=== PATIENT | male | born 1985 | race Caucasian/White ===

== ENCOUNTER 2018-10-18 23:10 | Emergency (ER) | payer SELFPAY ==
[~2018-10-18] VITALS: Ht 175.3 cm; Wt 84.1 kg
[2018-10-18 23:14] VITALS: BP 137/82; PULSE 87; TEMP 97.1
== END 2018-10-19 00:50 | disposition home or self-care (01) ==
LOC: COL.ER 23:10
DX: S49.91XA Unspecified injury of right shoulder and upper arm, initial encounter (principal); R20.0 Anesthesia of skin; I10 Essential (primary) hypertension; M47.816 Spondylosis without myelopathy or radiculopathy, lumbar region; M54.9 Dorsalgia, unspecified; G89.29 Other chronic pain; F17.210 Nicotine dependence, cigarettes, uncomplicated; Z87.828 Personal history of other (healed) physical injury and trauma; X50.0XXA Overexertion from strenuous movement or load, initial encounter

== ENCOUNTER 2018-10-23 19:57 | Emergency (ER) | payer SELFPAY ==
[~2018-10-23] VITALS: Ht 172.7 cm; Wt 84.1 kg
[2018-10-23 19:57] VITALS: TEMP 96.8
[2018-10-23] MEDS ORDERED: FLEXERIL 1010 MG/TAB PO (20:35)
[2018-10-23 21:37] VITALS: BP 131/89; PULSE 79
== END 2018-10-23 21:37 | disposition home or self-care (01) ==
LOC: COL.ER 19:57
DX: S09.90XA Unspecified injury of head, initial encounter (principal); S60.511A Abrasion of right hand, initial encounter; S20.311A Abrasion of right front wall of thorax, initial encounter; R07.89 Other chest pain; G89.29 Other chronic pain; M54.9 Dorsalgia, unspecified; Z23 Encounter for immunization; F17.210 Nicotine dependence, cigarettes, uncomplicated; W07.XXXA Fall from chair, initial encounter; Y92.009 Unspecified place in unspecified non-institutional (private) residence as the place of occurrence of the external cause

== ENCOUNTER 2018-11-07 03:29 | Emergency (ER) | payer SELFPAY ==
[~2018-11-07] VITALS: Ht 170.2 cm; Wt 84.1 kg
[~2018-11-07 03:29] MED LIST: FLEXERIL 1010 MG/TAB PO
[2018-11-07 03:30] VITALS: BP 145/106
[2018-11-07] MEDS ORDERED: FLEXERIL 1010 MG/TAB PO (04:20)
[2018-11-07 04:44] VITALS: PULSE 82; TEMP 98.2
== END 2018-11-07 04:43 | disposition home or self-care (01) ==
LOC: COL.ER 03:29
DX: S29.012A Strain of muscle and tendon of back wall of thorax, initial encounter (principal); M25.511 Pain in right shoulder; G89.29 Other chronic pain; I10 Essential (primary) hypertension; M19.90 Unspecified osteoarthritis, unspecified site; F17.210 Nicotine dependence, cigarettes, uncomplicated; W19.XXXA Unspecified fall, initial encounter; Y92.59 Other trade areas as the place of occurrence of the external cause
CPT/HCPCS: J1885

== ENCOUNTER 2018-11-20 00:28 | Emergency (ER) | payer SELFPAY ==
[~2018-11-20] VITALS: Ht 172.7 cm; Wt 90.9 kg
[2018-11-20 00:47] VITALS: TEMP 98.6
[2018-11-20] MEDS ORDERED: ULTRAM 50MG TAB50 MG PO (02:47)
[2018-11-20] MEDS ORDERED: CRUTCHES MC (02:48)
[2018-11-20 03:12] VITALS: BP 128/80; PULSE 75
== END 2018-11-20 03:13 | disposition home or self-care (01) ==
LOC: COL.ER 00:28
DX: M25.561 Pain in right knee (principal); G89.29 Other chronic pain
CPT/HCPCS: J1885

== ENCOUNTER 2018-12-01 10:11 | Emergency (ER) | payer OTHER ==
[~2018-12-01] VITALS: Ht 172.7 cm; Wt 90.9 kg
[~2018-12-01 10:11] MED LIST changes: +CRUTCHES MC; +ULTRAM 50MG TAB50 MG PO
[2018-12-01 10:27] VITALS: BP 151/90; TEMP 98.1
[2018-12-01] MEDS ORDERED: FLEXERIL 1010 MG/TAB PO (11:42)
[2018-12-01 11:55] VITALS: PULSE 64
== END 2018-12-01 11:55 | disposition home or self-care (01) ==
LOC: COL.ER 10:11
DX: S39.012A Strain of muscle, fascia and tendon of lower back, initial encounter (principal); Z87.891 Personal history of nicotine dependence; W19.XXXA Unspecified fall, initial encounter; W22.8XXA Striking against or struck by other objects, initial encounter; Y92.59 Other trade areas as the place of occurrence of the external cause

== ENCOUNTER 2018-12-04 14:16 | Outpatient (RCR) | payer OTHER | END 2019-03-04 | disposition home or self-care (01) | LOC: WSOH | DX: S39.012A Strain of muscle, fascia and tendon of lower back, initial encounter (principal); S30.0XXA Contusion of lower back and pelvis, initial encounter; F17.210 Nicotine dependence, cigarettes, uncomplicated; W01.0XXA Fall on same level from slipping, tripping and stumbling without subsequent striking against object, initial encounter; Y92.511 Restaurant or cafe as the place of occurrence of the external cause; Y99.0 Civilian activity done for income or pay; Z79.899 Other long term (current) drug therapy ==

== ENCOUNTER 2019-01-03 21:20 | Emergency (ER) | payer SELFPAY ==
[~2019-01-03] VITALS: Ht 175.3 cm; Wt 79.5 kg
[2019-01-03 21:22] VITALS: TEMP 97.6
[2019-01-03 22:00] LABS: COLLECTION METHOD CLEAN CATCH
[2019-01-03 22:05] LABS: PH 9 (5-8); SQUAMOUS EPITHELIAL 0-2 /hpf; URINE APPEARANCE Clear; URINE BACTERIA None Seen /hpf; URINE BILIRUBIN Negative (NEGATIVE); URINE BLOOD Negative (NEGATIVE); URINE COLOR Yellow; URINE GLUCOSE Negative (NEGATIVE); URINE KETONE Trace (NEGATIVE); URINE LEUKOCYTE ESTERASE Negative (NEGATIVE); URINE NITRATE Negative (NEGATIVE); URINE PROTEIN(semi-quant) Negative (NEGATIVE); URINE RBC 0-2 /hpf; URINE UROBILINOGEN Negative (NEGATIVE)
[2019-01-03 22:13] LABS: TRICYCLIC ANTIDEPRESS URINE NEGATIVE
[2019-01-03 22:13] LABS: BASO % 0.3 % (0.0-2.0); EOS # 0.1 (0.0-0.7); EOS % 1.3 % (0-4.0); GRAN % 76.9 % (42.2-75.2); HEMATOCRIT 39.4 % (42.0-52.0); HEMOGLOBIN 14.1 g/dl (13.5-18.0); LYMPH # 1.2 (1.2-3.4); LYMPH % 14.8 % (20.0-51.0); MEAN CELL VOLUME 92 fl (80.0-100.0); MEAN CORPUSCULAR HEMOGLOBIN 33 pg (27.0-31.0); MEAN CORPUSCULAR HGB CONC 36 g/dl (33.0-37.0); MEAN PLATELET VOLUME 9.8 fl (7.4-10.4); MONO # 0.5 (0.1-0.6); MONO % 6.3 % (1.7-9.3); PLATELET COUNT 164 K/mm3 (130-400); RED BLOOD COUNT 4.27 M/mm3 (4.20-5.60); REDCELL DISTRIBUTION WIDTH-CV 12.3 % (11.5-14.5)
[2019-01-03 22:25] LABS: ALANINE AMINOTRANSFERASE 38 U/L (21-72); ALBUMIN 4.8 gm/dL (3.5-5.0); ALKALINE PHOSPHATASE 57 U/L (50-136); ANION GAP 9 mmol/L (7-16); AST,SGOT 35 U/L (15-37); BILIRUBIN,TOTAL 0.5 mg/dL (0.0-1.0); BLOOD UREA NITROGEN 14 mg/dL (9-20); CALCIUM 9.2 mg/dL (8.4-10.2); CARBON DIOXIDE 26 mmol/L (22-30); CHLORIDE 106 mmol/L (98-107); CREATININE, serum 0.82 (0.66-1.25); GLUCOSE 96 mg/dL (74-106); POTASSIUM 3.6 mmol/L (3.4-5.0); PROTHROMBIN TIME 11.3 SECONDS (9.7-12.8); SODIUM 140 mmol/L (137-145); TOTAL PROTEIN 7.4 gm/dL (6.4-8.2)
[2019-01-03 22:26] LABS: ALCOHOL(ethanol),MEDICAL < 10 mg/dL
[2019-01-03 22:42] LABS: PROLACTIN 19.9 ng/mL (3.7-17.9)
[2019-01-03 23:19] VITALS: BP 131/92; PULSE 72
== END 2019-01-03 23:03 | disposition home or self-care (01) ==
LOC: COL.ER 21:20
PROVIDERS: Emergency Medicine
DX: R56.9 Unspecified convulsions (principal)
CPT/HCPCS: J2060; J7030

== ENCOUNTER 2019-04-16 08:26 | Emergency (ER) | payer SELFPAY ==
[~2019-04-16] VITALS: Ht 175.3 cm; Wt 90.9 kg
[2019-04-16 08:27] VITALS: TEMP 100.8
[2019-04-16] MEDS ORDERED: XANAX 0.5MG0.5 MG PO (08:48)
[2019-04-16] MEDS ORDERED: ULTRAM 50MG TAB50 MG PO (08:48)
[2019-04-16 09:17] LABS: STREP SCREEN NEGATIVE
[2019-04-16 11:27] VITALS: BP 111/78; PULSE 89
== END 2019-04-16 11:27 | disposition home or self-care (01) ==
LOC: COL.ER 08:26
PROVIDERS: Nurse Practitioner
DX: B34.9 Viral infection, unspecified (principal); F17.210 Nicotine dependence, cigarettes, uncomplicated
CPT/HCPCS: J1885; J7030

== ENCOUNTER 2019-05-30 10:04 | Emergency (ER) | payer SELFPAY ==
[~2019-05-30] VITALS: Ht 172.7 cm; Wt 90.9 kg
[~2019-05-30 10:04] MED LIST changes: +XANAX 0.5MG0.5 MG PO
[2019-05-30 10:16] VITALS: BP 131/92; TEMP 98.4
[2019-05-30 11:36] LABS: STREP SCREEN NEGATIVE
[2019-05-30] MEDS ORDERED: TAMIFLU 75MG75 MG PO (12:32)
[2019-05-30 12:42] VITALS: PULSE 81
== END 2019-05-30 12:42 | disposition home or self-care (01) ==
LOC: COL.ER 10:04
PROVIDERS: Physician Assistant
DX: J10.1 Influenza due to other identified influenza virus with other respiratory manifestations (principal); F17.210 Nicotine dependence, cigarettes, uncomplicated

== ENCOUNTER 2019-08-14 18:13 | Emergency (ER) | payer SELFPAY ==
[~2019-08-14] VITALS: Ht 175.3 cm; Wt 81.8 kg
[~2019-08-14 18:13] MED LIST changes: +TAMIFLU 75MG75 MG PO
[2019-08-14 18:25] VITALS: BP 148/93; TEMP 98
[2019-08-14] MEDS ORDERED: CLEOCIN HCL300 MG PO (19:03)
[2019-08-14] MEDS ORDERED: NORCO 325 MG-51 TAB PO (19:03)
[2019-08-14 19:14] VITALS: PULSE 81
== END 2019-08-14 19:13 | disposition home or self-care (01) ==
LOC: COL.ER 18:13
DX: K04.7 Periapical abscess without sinus (principal); F41.9 Anxiety disorder, unspecified; F90.9 Attention-deficit hyperactivity disorder, unspecified type; F17.210 Nicotine dependence, cigarettes, uncomplicated

== ENCOUNTER 2019-08-15 11:11 | Emergency (ER) | payer SELFPAY ==
[~2019-08-15] VITALS: Ht 172.7 cm; Wt 81.8 kg
[~2019-08-15 11:11] MED LIST changes: +CLEOCIN HCL300 MG PO; +NORCO 325 MG-51 TAB PO
[2019-08-15 11:19] VITALS: TEMP 97.9
[2019-08-15 12:23] LABS: BASO # 0.1 (0.0-0.2); BASO % 0.7 % (0.0-2.0); EOS # 0.1 (0.0-0.7); EOS % 1.1 % (0-4.0); GRAN # 5.6 (1.4-6.5); GRAN % 78.9 % (42.2-75.2); HEMATOCRIT 39.8 % (42.0-52.0); HEMOGLOBIN 14.3 g/dl (13.5-18.0); LYMPH # 0.8 (1.2-3.4); LYMPH % 10.8 % (20.0-51.0); MEAN CELL VOLUME 92 fl (80.0-100.0); MEAN CORPUSCULAR HEMOGLOBIN 33 pg (27.0-31.0); MEAN CORPUSCULAR HGB CONC 36 g/dl (33.0-37.0); MEAN PLATELET VOLUME 10.1 fl (7.4-10.4); MONO # 0.6 (0.1-0.6); MONO % 8.1 % (1.7-9.3); PLATELET COUNT 142 K/mm3 (130-400); RED BLOOD COUNT 4.33 M/mm3 (4.20-5.60); REDCELL DISTRIBUTION WIDTH-CV 12.5 % (11.5-14.5)
[2019-08-15 12:27] LABS: ALBUMIN 4.6 gm/dL (3.5-5.0); BILIRUBIN,TOTAL 0.9 mg/dL (0.0-1.0); CREATININE, serum 0.94 (0.66-1.25); POTASSIUM 4.3 mmol/L (3.4-5.0); TOTAL PROTEIN 7.5 gm/dL (6.4-8.2)
[2019-08-15 13:22] VITALS: BP 157/108; PULSE 69
[2019-08-16] MEDS ORDERED: AMOXICILLIN 8751 TAB PO (07:54)
== END 2019-08-15 13:30 | disposition home or self-care (01) ==
LOC: COL.ER 11:11
PROVIDERS: Physician Assistant
DX: K12.2 Cellulitis and abscess of mouth (principal); R22.0 Localized swelling, mass and lump, head; F41.9 Anxiety disorder, unspecified; F17.210 Nicotine dependence, cigarettes, uncomplicated
CPT/HCPCS: J7030; Q9967

== ENCOUNTER 2019-08-16 05:50 | Emergency (ER) | payer SELFPAY ==
[~2019-08-16] VITALS: Ht 172.7 cm; Wt 81.8 kg
[2019-08-16 05:52] VITALS: TEMP 100.3
[2019-08-16 07:33] LABS: BASO % 0.3 % (0.0-2.0); EOS % 0.5 % (0-4.0); GRAN # 5.4 (1.4-6.5); GRAN % 71.5 % (42.2-75.2); HEMATOCRIT 38.2 % (42.0-52.0); HEMOGLOBIN 13.6 g/dl (13.5-18.0); LYMPH # 1.3 (1.2-3.4); MEAN CELL VOLUME 91 fl (80.0-100.0); MEAN CORPUSCULAR HEMOGLOBIN 33 pg (27.0-31.0); MEAN CORPUSCULAR HGB CONC 36 g/dl (33.0-37.0); MEAN PLATELET VOLUME 9.8 fl (7.4-10.4); MONO # 0.8 (0.1-0.6); MONO % 10.6 % (1.7-9.3); PLATELET COUNT 142 K/mm3 (130-400); RED BLOOD COUNT 4.19 M/mm3 (4.20-5.60); REDCELL DISTRIBUTION WIDTH-CV 12.4 % (11.5-14.5)
[2019-08-16] MEDS ORDERED: AMOXICILLIN 8751 TAB PO (07:54)
[2019-08-16 09:17] VITALS: BP 137/95; PULSE 79
== END 2019-08-16 09:20 | disposition home or self-care (01) ==
LOC: COL.ER 05:50
PROVIDERS: Emergency Medicine
DX: J32.9 Chronic sinusitis, unspecified (principal); K05.6 Periodontal disease, unspecified; F17.210 Nicotine dependence, cigarettes, uncomplicated
CPT/HCPCS: J0696; J1885; J3370; J7050

== ENCOUNTER 2019-09-09 04:00 | Emergency (ER) | payer SELFPAY ==
[~2019-09-09] VITALS: Ht 172.7 cm; Wt 86.4 kg
[~2019-09-09 04:00] MED LIST changes: +AMOXICILLIN 8751 TAB PO
[2019-09-09 04:04] VITALS: TEMP 98.1
[2019-09-09 04:20] LABS: ARTERIAL BLD GAS O2 SATURATION 98.9 % (92-100); ARTERIAL BLD GAS TCO2 CT 15.8; ARTERIAL BLOOD GAS BASE EXCESS 1.8 (-2-2); ARTERIAL BLOOD GAS HCO3 15.5 meq/L (22-26)
[2019-09-09 04:21] LABS: ARTERIAL BLOOD GAS PCO2 10.5 mmHg (35-45); ARTERIAL BLOOD GAS PO2 127.8 mmHg (80-100); ARTERIAL BLOOD GAS pH 7.79 (7.35-7.45)
[2019-09-09 07:06] LABS: ARTERIAL BLD GAS O2 SATURATION 93.9 % (92-100); ARTERIAL BLD GAS TCO2 CT 21.5; ARTERIAL BLOOD GAS BASE EXCESS -4.4 (-2-2); ARTERIAL BLOOD GAS HCO3 20.4 meq/L (22-26); ARTERIAL BLOOD GAS pH 7.36 (7.35-7.45)
[2019-09-09 07:08] LABS: COLLECTION METHOD CLEAN CATCH
[2019-09-09 07:13] LABS: BASO % 0.4 % (0.0-2.0); EOS # 0.1 (0.0-0.7); EOS % 0.8 % (0-4.0); GRAN # 6.9 (1.4-6.5); GRAN % 74.5 % (42.2-75.2); HEMATOCRIT 42.6 % (42.0-52.0); HEMOGLOBIN 14.9 g/dl (13.5-18.0); LYMPH # 1.5 (1.2-3.4); LYMPH % 16.5 % (20.0-51.0); MEAN CELL VOLUME 92 fl (80.0-100.0); MEAN CORPUSCULAR HEMOGLOBIN 32 pg (27.0-31.0); MEAN CORPUSCULAR HGB CONC 35 g/dl (33.0-37.0); MEAN PLATELET VOLUME 9.9 fl (7.4-10.4); MONO # 0.7 (0.1-0.6); MONO % 7.2 % (1.7-9.3); PLATELET COUNT 166 K/mm3 (130-400); RED BLOOD COUNT 4.61 M/mm3 (4.20-5.60); REDCELL DISTRIBUTION WIDTH-CV 12.6 % (11.5-14.5)
[2019-09-09 07:15] LABS: MUCOUS Present /lpf; PH 7 (5-8); SQUAMOUS EPITHELIAL None Seen /hpf; URINE APPEARANCE Clear; URINE BACTERIA None Seen /hpf; URINE BILIRUBIN Negative (NEGATIVE); URINE BLOOD Negative (NEGATIVE); URINE COLOR Yellow; URINE GLUCOSE Negative (NEGATIVE); URINE KETONE Trace (NEGATIVE); URINE LEUKOCYTE ESTERASE Negative (NEGATIVE); URINE NITRATE Negative (NEGATIVE); URINE PROTEIN(semi-quant) Negative (NEGATIVE); URINE UROBILINOGEN Negative (NEGATIVE)
[2019-09-09 07:23] LABS: ALBUMIN 4.7 gm/dL (3.5-5.0); BILIRUBIN,TOTAL 0.8 mg/dL (0.0-1.0); CALCIUM 9.2 mg/dL (8.4-10.2); POTASSIUM 3.8 mmol/L (3.4-5.0); TOTAL PROTEIN 7.8 gm/dL (6.4-8.2)
[2019-09-09 07:37] LABS: TRICYCLIC ANTIDEPRESS URINE NEGATIVE
[2019-09-09 09:00] VITALS: BP 128/95; PULSE 78
--- NOTE | 2019-09-09 13:00 | NUR ---
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 SW met with patient who advised that he lives in [place] with a roommate. Patient states he lives at a place on [address], which is the address listed on his facesheet. Patient reports he used to work at [employer] but doesn't currently have any income. 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 Patient reports his mom, Eileen (ph#[phone]) lives outside of [place]. Patient reports he is working on getting a ride home. Patient states he has a place to go upon discharge and denies any further questions or concerns at this time. NEMESIO provided [facility] Resource Guide and patient will discharge home today.
== END 2019-09-09 09:30 | disposition home or self-care (01) ==
LOC: COL.ER 04:00
PROVIDERS: Emergency Medicine
DX: F41.9 Anxiety disorder, unspecified (principal); F90.9 Attention-deficit hyperactivity disorder, unspecified type; F17.210 Nicotine dependence, cigarettes, uncomplicated
CPT/HCPCS: J2060

== ENCOUNTER 2019-10-25 21:08 | Emergency (ER) | payer SELFPAY ==
[2019-10-25 21:35] VITALS: BP 136/97; TEMP 98.9
[2019-10-25 21:37] LABS: BASO % 0.4 % (0.0-2.0); EOS # 0.2 (0.0-0.7); GRAN # 4.5 (1.4-6.5); GRAN % 61.4 % (42.2-75.2); HEMATOCRIT 41.3 % (42.0-52.0); HEMOGLOBIN 14.7 g/dl (13.5-18.0); LYMPH # 2.1 (1.2-3.4); MEAN CELL VOLUME 92 fl (80.0-100.0); MEAN CORPUSCULAR HEMOGLOBIN 33 pg (27.0-31.0); MEAN CORPUSCULAR HGB CONC 36 g/dl (33.0-37.0); MEAN PLATELET VOLUME 9.8 fl (7.4-10.4); MONO # 0.5 (0.1-0.6); MONO % 6.8 % (1.7-9.3); PLATELET COUNT 206 K/mm3 (130-400)
[2019-10-25 21:38] LABS: ALBUMIN 4.5 gm/dL (3.5-5.0); BILIRUBIN,TOTAL 0.4 mg/dL (0.0-1.0); C-REACTIVE PROTEIN 1.1 mg/dL (0.0-0.9); CALCIUM 9.3 mg/dL (8.4-10.2); CREATININE, serum 1.05 (0.66-1.25); POTASSIUM 3.9 mmol/L (3.4-5.0); TOTAL PROTEIN 7.6 gm/dL (6.4-8.2)
[2019-10-25] MEDS ORDERED: AMOXICILLIN 8751 TAB PO (22:43)
[2019-10-25 23:42] VITALS: PULSE 76
== END 2019-10-25 23:15 | disposition home or self-care (01) ==
LOC: COL.ER 21:08
PROVIDERS: Family Medicine
DX: E86.0 Dehydration (principal); J32.9 Chronic sinusitis, unspecified; F90.9 Attention-deficit hyperactivity disorder, unspecified type
CPT/HCPCS: J0696; J2405; J7120

== ENCOUNTER 2019-12-20 15:18 | Emergency (ER) | payer SELFPAY ==
[~2019-12-20] VITALS: Ht 172.7 cm; Wt 95.5 kg
[2019-12-20 15:21] VITALS: BP 147/95; TEMP 97.8
[2019-12-20 15:54] VITALS: PULSE 73
== END 2019-12-20 15:53 | disposition home or self-care (01) ==
LOC: COL.ER 15:18
DX: M76.51 Patellar tendinitis, right knee (principal); F17.210 Nicotine dependence, cigarettes, uncomplicated; X50.1XXA Overexertion from prolonged static or awkward postures, initial encounter; Y99.0 Civilian activity done for income or pay

== ENCOUNTER 2020-03-09 18:55 | Emergency (ER) | payer SELFPAY ==
[~2020-03-09] VITALS: Ht 170.2 cm; Wt 100.0 kg
[2020-03-09 19:08] VITALS: BP 128/89; PULSE 75; TEMP 98.6
[2020-03-09] MEDS ORDERED: ZOFRAN ODT4 MG PO (19:25)
== END 2020-03-09 19:32 | disposition home or self-care (01) ==
LOC: COL.ER 18:55
DX: R11.2 Nausea with vomiting, unspecified (principal); F17.210 Nicotine dependence, cigarettes, uncomplicated

== ENCOUNTER 2020-03-17 19:53 | Emergency (ER) | payer SELFPAY ==
[~2020-03-17] VITALS: Ht 175.3 cm; Wt 100.0 kg
[~2020-03-17 19:53] MED LIST changes: +ZOFRAN ODT4 MG PO
[2020-03-17 19:59] VITALS: TEMP 97.2
[2020-03-17] MEDS ORDERED: NAPROSYN500 MG PO (20:18)
[2020-03-17] MEDS ORDERED: FLEXERIL 1010 MG/TAB PO (20:18)
[2020-03-17 20:29] VITALS: BP 154/92; PULSE 75
== END 2020-03-17 20:29 | disposition home or self-care (01) ==
LOC: COL.ER 19:53
DX: M54.5 Low back pain (principal); F41.9 Anxiety disorder, unspecified
CPT/HCPCS: J1885

== ENCOUNTER 2020-07-03 18:07 | Emergency (ER) | payer SELFPAY ==
[~2020-07-03] VITALS: Ht 175.3 cm; Wt 102.3 kg
[~2020-07-03 18:07] MED LIST changes: +NAPROSYN500 MG PO
[2020-07-03 18:09] VITALS: TEMP 98.2
[2020-07-03] MEDS ORDERED: CEPHALEXIN500 M1 PO (18:29)
[2020-07-03] MEDS ORDERED: TYLENOL 325MG325 MG PO (18:30)
[2020-07-03] MEDS ORDERED: MOTRIN 400400 MG/TAB PO (18:30)
[2020-07-03 19:12] VITALS: BP 129/98; PULSE 80
== END 2020-07-03 19:20 | disposition home or self-care (01) ==
LOC: COL.ER 18:07
DX: S62.633B Displaced fracture of distal phalanx of left middle finger, initial encounter for open fracture (principal); W26.8XXA Contact with other sharp object(s), not elsewhere classified, initial encounter; Y93.E9 Activity, other interior property and clothing maintenance; S61.213A Laceration without foreign body of left middle finger without damage to nail, initial encounter
CPT/HCPCS: J1885; J2250

== ENCOUNTER 2020-08-04 08:46 | Emergency (ER) | payer SELFPAY ==
[~2020-08-04] VITALS: Ht 175.3 cm; Wt 109.1 kg
[~2020-08-04 08:46] MED LIST changes: +CEPHALEXIN500 M1 PO; +MOTRIN 400400 MG/TAB PO; +TYLENOL 325MG325 MG PO
[2020-08-04 08:55] VITALS: TEMP 98
[2020-08-04 09:44] LABS: BASO % 0.5 % (0.0-2.0); EOS # 0.1 (0.0-0.7); EOS % 2.4 % (0-4.0); GRAN % 68.8 % (42.2-75.2); HEMATOCRIT 42.6 % (42.0-52.0); HEMOGLOBIN 15.1 g/dl (13.5-18.0); LYMPH # 1.2 (1.2-3.4); LYMPH % 20.9 % (20.0-51.0); MEAN CELL VOLUME 92 fl (80.0-100.0); MEAN CORPUSCULAR HEMOGLOBIN 33 pg (27.0-31.0); MEAN CORPUSCULAR HGB CONC 35 g/dl (33.0-37.0); MEAN PLATELET VOLUME 10.3 fl (7.4-10.4); MONO # 0.4 (0.1-0.6); MONO % 7.1 % (1.7-9.3); PLATELET COUNT 181 K/mm3 (130-400); RED BLOOD COUNT 4.64 M/mm3 (4.20-5.60); REDCELL DISTRIBUTION WIDTH-CV 11.9 % (11.5-14.5)
[2020-08-04 10:00] LABS: ALANINE AMINOTRANSFERASE 40 U/L (4-49); ALBUMIN 4.6 gm/dL (3.5-5.0); ALKALINE PHOSPHATASE 54 U/L (50-136); ANION GAP 9 mmol/L (7-16); AST,SGOT 43 U/L (15-37); BILIRUBIN,TOTAL 0.7 mg/dL (0.0-1.0); BLOOD UREA NITROGEN 15 mg/dL (9-20); CALCIUM 9.5 mg/dL (8.4-10.2); CARBON DIOXIDE 27 mmol/L (22-30); CHLORIDE 105 mmol/L (98-107); CREATININE, serum 0.85 (0.66-1.25); GLUCOSE 104 mg/dL (74-106); POTASSIUM 4.4 mmol/L (3.4-5.0); SODIUM 141 mmol/L (137-145); TOTAL PROTEIN 7.5 gm/dL (6.4-8.2)
[2020-08-04 10:16] LABS: TROPONIN-I < 0.012 ng/mL (0.000-0.035)
[2020-08-04 10:57] VITALS: BP 148/100; PULSE 65
== END 2020-08-04 10:57 | disposition home or self-care (01) ==
LOC: COL.ER 08:46
PROVIDERS: Emergency Medicine
DX: R51.9 Headache, unspecified (principal); R55 Syncope and collapse
CPT/HCPCS: J1200; J2765; J7030

== ENCOUNTER 2020-08-25 04:25 | Emergency (ER) | payer SELFPAY ==
[~2020-08-25] VITALS: Ht 175.3 cm; Wt 104.5 kg
[2020-08-25] MEDS ORDERED: NORCO 325 MG-51 TAB PO (05:22)
[2020-08-25] MEDS ORDERED: PREDNISONE20 MG PO (05:22)
[2020-08-25 06:04] VITALS: BP 132/78; PULSE 78; TEMP 98.4
== END 2020-08-25 06:05 | disposition home or self-care (01) ==
LOC: COL.ER 04:25
DX: M25.561 Pain in right knee (principal); F17.210 Nicotine dependence, cigarettes, uncomplicated
CPT/HCPCS: J7512

== ENCOUNTER 2020-12-01 01:00 | Emergency (ER) | payer SELFPAY ==
[~2020-12-01] VITALS: Ht 177.8 cm; Wt 95.5 kg
[~2020-12-01 01:00] MED LIST changes: +PREDNISONE20 MG PO
[2020-12-01 01:26] VITALS: TEMP 98
[2020-12-01] MEDS ORDERED: CEPHALEXIN500 M1 PO (02:12)
[2020-12-01 02:53] VITALS: BP 144/70; PULSE 64
== END 2020-12-01 02:53 | disposition home or self-care (01) ==
LOC: COL.ER 01:00
DX: S71.141A Puncture wound with foreign body, right thigh, initial encounter (principal); Z18.10 Retained metal fragments, unspecified; Z23 Encounter for immunization; W34.010A Accidental discharge of airgun, initial encounter

== ENCOUNTER 2020-12-12 21:23 | Emergency (ER) | payer SELFPAY ==
[~2020-12-12] VITALS: Ht 175.3 cm; Wt 91.8 kg
[2020-12-12 21:44] VITALS: TEMP 98.5
[2020-12-12] MEDS ORDERED: PEN-VEE K250 MG PO (22:04)
[2020-12-12 22:19] VITALS: BP 148/87; PULSE 79
== END 2020-12-12 22:20 | disposition home or self-care (01) ==
LOC: COL.ER 21:23
DX: K08.89 Other specified disorders of teeth and supporting structures (principal)

== ENCOUNTER → 2020-12-15 | Outpatient (CLI) | payer SELFPAY ==
[~2020-12-15] MED LIST changes: +PEN-VEE K250 MG PO
== END ==
LOC: COL.RAD 07:27
DX: S70.351A Superficial foreign body, right thigh, initial encounter (principal); W34.010D Accidental discharge of airgun, subsequent encounter
CPT/HCPCS: Q9967

== ENCOUNTER 2021-02-25 | Emergency (ER) | payer SELFPAY ==
[~2021-02-25] VITALS: Ht 172.7 cm; Wt 79.5 kg
[2021-02-25 00:07] VITALS: TEMP 98.1
[2021-02-25 02:38] VITALS: BP 134/75; PULSE 78
== END 2021-02-25 02:38 | disposition home or self-care (01) ==
LOC: COL.ER
DX: H53.8 Other visual disturbances (principal)
CPT/HCPCS: J1885

== ENCOUNTER 2021-05-09 09:24 | Emergency (ER) | payer SELFPAY ==
[~2021-05-09] VITALS: Ht 172.7 cm; Wt 81.8 kg
[2021-05-09] MEDS ORDERED: FLEXERIL 1010 MG/TAB PO (11:35)
[2021-05-09 11:54] VITALS: BP 149/99; PULSE 66; TEMP 97.6
== END 2021-05-09 11:50 | disposition home or self-care (01) ==
LOC: COL.ER 09:24
DX: S39.012A Strain of muscle, fascia and tendon of lower back, initial encounter (principal); F17.210 Nicotine dependence, cigarettes, uncomplicated; X50.9XXA Other and unspecified overexertion or strenuous movements or postures, initial encounter
CPT/HCPCS: J1885; J2360

== ENCOUNTER 2021-08-10 08:10 | Emergency (ER) | payer SELFPAY ==
[~2021-08-10] VITALS: Ht 172.7 cm; Wt 90.9 kg
[2021-08-10 08:15] VITALS: BP 153/96; TEMP 98.5
[2021-08-10 09:08] LABS: BASO # 0.1 K/mm3 (0.0-0.2); BASO % 0.5 % (0.0-2.0); EOS # 0.2 K/mm3 (0.0-0.7); EOS % 2.1 % (0.0-4.0); GRAN % 76.5 % (42.2-75.2); HEMATOCRIT 39.3 % (42.0-52.0); HEMOGLOBIN 14.3 g/dl (13.5-18.0); LYMPH # 1.4 K/mm3 (1.2-3.4); LYMPH % 15.1 % (20.0-51.0); MEAN CELL VOLUME 90 fl (80.0-100.0); MEAN CORPUSCULAR HEMOGLOBIN 33 pg (27-31); MEAN CORPUSCULAR HGB CONC 36 g/dl (33.0-37.0); MEAN PLATELET VOLUME 9.6 fl (7.4-10.4); MONO # 0.5 K/mm3 (0.1-0.6); MONO % 5.7 % (1.7-9.3); PLATELET COUNT 209 K/mm3 (130-400); RED BLOOD COUNT 4.35 M/mm3 (4.20-5.60); REDCELL DISTRIBUTION WIDTH-CV 11.9 % (11.5-14.5)
[2021-08-10 09:23] LABS: CREATININE, serum 0.93 mg/dL (0.72-1.25)
[2021-08-10] MEDS ORDERED: CLEOCIN HC150 MG/CAP PO ×2 (09:25)
[2021-08-10] MEDS ORDERED: NORCO 325 MG-51 TAB PO ×2 (09:29→23:43)
[2021-08-10 10:41] VITALS: PULSE 80
[2021-08-10] MEDS ORDERED: PEN-VEE K500 MG PO (11:19)
[2021-08-10] MEDS ORDERED: AMOXICILLIN 50500 MG PO (23:43)
== END 2021-08-10 09:55 | disposition home or self-care (01) ==
LOC: COL.ER 08:10
PROVIDERS: Emergency Medicine
DX: K04.7 Periapical abscess without sinus (principal); K02.9 Dental caries, unspecified; F17.210 Nicotine dependence, cigarettes, uncomplicated; Z28.310 Unvaccinated for COVID-19
CPT/HCPCS: J1885; Q9967

== ENCOUNTER 2021-08-10 23:06 | Emergency (ER) | payer SELFPAY ==
[~2021-08-10] VITALS: Ht 172.7 cm; Wt 90.9 kg
[~2021-08-10 23:06] MED LIST changes: +CLEOCIN HC150 MG/CAP PO; +PEN-VEE K500 MG PO
[2021-08-10 23:15] VITALS: TEMP 98.6
[2021-08-10] MEDS ORDERED: AMOXICILLIN 50500 MG PO (23:43)
[2021-08-10] MEDS ORDERED: NORCO 325 MG-51 TAB PO (23:43)
[2021-08-11 00:01] VITALS: BP 141/99; PULSE 82
== END 2021-08-11 00:10 | disposition home or self-care (01) ==
LOC: COL.ER 23:06
DX: K02.9 Dental caries, unspecified (principal); F17.200 Nicotine dependence, unspecified, uncomplicated; Z28.310 Unvaccinated for COVID-19

== ENCOUNTER 2021-10-12 12:19 | Emergency (ER) | payer SELFPAY ==
[~2021-10-12] VITALS: Ht 175.3 cm; Wt 88.6 kg
[~2021-10-12 12:19] MED LIST changes: +AMOXICILLIN 50500 MG PO
[2021-10-12 12:32] VITALS: BP 125/86; PULSE 97; TEMP 97.9
[2021-10-12] MEDS ORDERED: CLEOCIN HCL300 MG PO ×3 (12:49→15:42)
[2021-10-16] MEDS ORDERED: CRUTCHES MC (23:47)
== END 2021-10-12 13:11 | disposition home or self-care (01) ==
LOC: COL.ER 12:19
DX: K02.9 Dental caries, unspecified (principal); F17.210 Nicotine dependence, cigarettes, uncomplicated; Z28.310 Unvaccinated for COVID-19

== ENCOUNTER 2021-10-12 13:27 | Emergency (ER) | payer SELFPAY ==
[~2021-10-12] VITALS: Ht 175.3 cm; Wt 88.6 kg
[2021-10-12 14:12] VITALS: TEMP 98.6
[2021-10-12 15:20] VITALS: BP 113/71; PULSE 86
[2021-10-12] MEDS ORDERED: CLEOCIN HCL300 MG PO (15:42)
[2021-10-16] MEDS ORDERED: CRUTCHES MC (23:47)
== END 2021-10-12 15:20 | disposition home or self-care (01) ==
LOC: COL.ER 13:27
DX: S70.311A Abrasion, right thigh, initial encounter (principal); F17.210 Nicotine dependence, cigarettes, uncomplicated; Z28.310 Unvaccinated for COVID-19; V28.4XXA Motorcycle driver injured in noncollision transport accident in traffic accident, initial encounter; Y92.410 Unspecified street and highway as the place of occurrence of the external cause

== ENCOUNTER 2021-10-14 18:20 | Emergency (ER) | payer SELFPAY ==
[~2021-10-14] VITALS: Ht 175.3 cm; Wt 88.6 kg
[2021-10-14 18:37] VITALS: TEMP 98
[2021-10-14 20:23] VITALS: BP 125/82; PULSE 70
[2021-10-16] MEDS ORDERED: CRUTCHES MC (23:47)
== END 2021-10-14 20:23 | disposition home or self-care (01) ==
LOC: COL.ER 18:20
DX: M25.551 Pain in right hip (principal); K03.81 Cracked tooth; K08.409 Partial loss of teeth, unspecified cause, unspecified class; F17.200 Nicotine dependence, unspecified, uncomplicated; Z28.310 Unvaccinated for COVID-19; W05.2XXA Fall from non-moving motorized mobility scooter, initial encounter
CPT/HCPCS: J1885; J2360

== ENCOUNTER 2022-05-15 13:53 | Emergency (ER) | payer SELFPAY ==
[~2022-05-15] VITALS: Ht 175.3 cm; Wt 90.9 kg
[2022-05-15 13:57] VITALS: BP 137/86; TEMP 98.1
[2022-05-15] MEDS ORDERED: AMOXICILLIN 50500 MG PO (14:16)
[2022-05-15 14:49] VITALS: PULSE 70
== END 2022-05-15 14:53 | disposition home or self-care (01) ==
LOC: COL.ER 13:53
DX: K08.89 Other specified disorders of teeth and supporting structures (principal); F17.200 Nicotine dependence, unspecified, uncomplicated; Z28.310 Unvaccinated for COVID-19